=== PATIENT | female | born 1940 | race Caucasian/White ===

== ENCOUNTER 2024-06-09 12:01 | Inpatient (IN) ==
--- NOTE | 2024-06-09 12:20 | Emergency Department Note ---
Impression & Plan SOB (shortness of breath), Cirrhosis, Pleural effusion associated with hepatic disorder, Anemia, Elevated troponin ED Provider Note CHIEF COMPLAINT: Shortness of breath, wheezing, fluid buildup in lungs HISTORY OF PRESENTING ILLNESS: This 83-year-old female patient presents to the emergency department with her [id number] and granddaughter for evaluation of shortness of breath, wheezing, and trouble breathing. She also has pain in her chest and back radiating to her right arm. The patient has a history of nonalcoholic cirrhosis and has had effusions that have had to be drained by Dr. Noonan in the past. This was last done 3 months ago. The patient had a CT A/P and liver ultrasound done on 06/05/2024 at [facility] that showed a buildup of fluid, but it was stable per patient. Her shortness of breath and chest discomfort have gotten progressively worse over the past day. She states it feels similar to when she is backed up with fluid. She is on Aldactone 100 mg QAM and Lasix 40 mg QAM which seems to be a good dose for her. She tends to need paracentesis every 3 months, but has not gotten on a regular schedule yet. She is not on any blood thinners. Denies hematochezia, melena, hematuria, hemoptysis, or hematemesis. I reviewed the patient's pulmonary visit from 02/24/2024. 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 The patient had her last thoracentesis on 02/16/2024 at [facility] and she had 1.8 L removed. She has had improvement of her symptoms on Aldactone and Lasix, but still requires intermittent thoracentesis. Pulmonology discussed a Pleurx catheter placement if she did not want to undergo serial scheduled for thoracentesis with radiology. The patient's previous pleural fluid studies showed transudative effusion with negative cytology x 2. The patient had an echocardiogram in August 2023 that showed mildly increased wall thickness of the LV with normal systolic function. Normal RVSP at 28 mmHg. Mild regurgitation noted of the mitral valve. [place] [facility] manages her diuretics. The patient also follows up with [facility] hematology for her anemia. She has a history of esophageal varices and follows with GI in [place]. The patient had not seen hepatology before. The patient has not had to have a paracentesis since 2019. Cauterization of her stomach improved her abdominal ascites per patient. She had a virtual visit with [facility] Hepatology on 05/23/[address] A/P and RUQ US ordered in addition to hepatology. They do not have a follow up appt set up yet. She urology last week due to blood in her urine and she is to undergo the bladder cancer screening kit, but this has not been done yet. The patient has an appt with hematology on 06/13/24. She has a history of GAVE, but no other sources of active bleeding. Her can reforming machine operator just thinks that she is just not making enough blood. She has been as low as a Hgb of 5 before. She normally lives in the 7's and 8's. Her last blood transfusion was 02/16/24 due to Hgb of 6.9. Last iron transfusion was 12/12/23. 06/05/24 CT A/P without contrast: moderate right-sided pleural effusion with underlying collapse (stable). Mild ascites in the abdomen and pelvis (regressed). Liver cirrhosis (stable). Uncomplicated sigmoid diverticulosis (stable). Umbilical hernia containing fat and fluid (stable). 06/05/24 RUQ US: The liver is upper limits of normal showing coarse parenchymal echotexture and irregular margins with minimal perihepatic fluid. Findings are suggesting of cirrhotic liver disease. Small size right kidney. Right sided pleural effusion. The CBD is prominent measuring 1.0 cm. Findings concur with prior CT 02/16/24. 06/08/24 labs: WBC 4.1, Hgb 7.3, Hct 22.2, Plt 176. REVIEW OF SYSTEMS: See HPI for pertinent positives and pertinent negatives. ALLERGIES: Prednisone - significant facial swelling MEDICATIONS: See below PAST MEDICAL HISTORY: See below PHYSICAL EXAM: VITALS: Vitals are noted on the nurse's note and reviewed by myself. GENERAL: Non toxic, in no acute distress, non-diaphoretic. SKIN: Capillary refill <2 sec. EYES: PERRLA. EOMI. Conjunctivae without injection, sclerae without icterus. NOSE: Patent without discharge. MOUTH: Mucous membranes moist. Uvula midline. Airway patent. NECK: Supple without nuchal rigidity. HEART: Regular rate and rhythm without murmurs gallops or rubs. LUNGS: Clear to auscultation bilaterally without wheezes, rales or rhonchi. No retractions or accessory muscle use. ABDOMEN: Positive bowel sounds x 4. Normal tympanic percussion with minimal distention and no significant ascites on exam. Soft, nontender to palpation. No masses or hepatosplenomegaly. James sign negative. No CVA tenderness. No guarding, rigidity, or rebound tenderness. No focal RLQ or LLQ tenderness. MUSCULOSKELETAL: No gross musculoskeletal defects. Bilateral lower extremities are nontender to palpation. No erythema, edema, warmth, or cording. No significant edema of her bilateral lower extremities. Peripheral pulses 2+ and equal in the bilateral upper and lower extremities. RECTAL EXAM: Permission to perform the exam. Deep Tissue Massage Therapist present for exam. No external lesions noted. No external hemorrhoids. Normal sphincter tone. Internal hemorrhoids are not enlarged. No masses, tears, fistulas, fissures, abscess, or other lesion noted. Stool is brown, but Hemoccult positive. NEURO: Patient was alert and oriented. No focal neurological deficits. DIFFERENTIAL DIAGNOSIS: Differential diagnosis includes URI, bronchitis, pneumonia, pleural effusion, ascites, pneumothorax, hemothorax, PE, [place], pericarditis, myocarditis, airway obstruction, aspiration, pulmonary edema, asthma, COPD, CHF, pleurisy, metabolic acidosis, anemia, neoplasm, or others. ED COURSE AND MEDICAL DECISION MAKING: HISTORY FROM INDEPENDENT HISTORIAN: Additional history was obtained from the patient's [id number] and granddaughter. MONITOR: Continuous satellite project site monitor: Order was placed for continuous satellite project site monitor. Patient was placed on the satellite project site monitor and continuous pulse ox. Patient was noted to be in normal sinus rhythm at an initial rate of 70 bpm per my interpretation. EKG: EKG was interpreted by myself as sinus rhythm at 77 bpm with PVCs, but no acute ST or T wave changes. INTERPRETATION OF LABS: I interpreted the labs with full lab results as below in the lab section of this note. Pertinent lab results discussed in the MDM section below. INTERPRETATION OF IMAGING: Imaging studies were interpreted by myself and read by radiology as per the imaging section of this note. Chest x-ray showed cardiomegaly without evidence for pulmonary edema. There is a small right pleural effusion which is decreased in size since her prior chest CT. EXTERNAL RECORDS REVIEWED: I reviewed the patient's pulmonary office visit notes as summarized above as well as multiple laboratory and imaging study results on the patient's portal from other hospitals as summarized above. CHRONIC MEDICAL/SOCIAL CONDITIONS AFFECTING CARE: Nonalcoholic cirrhosis with recurrent pleural effusions requiring thoracentesis CONSULTATIONS: On-call hospitalist CRITICAL CARE: I have personally spent 60 minutes of critical care time in the direct management of this patient. This includes bedside care, interpretation of diagnostic studies, and testing, discussion with consultants, patient, and family members, and other required patient management activities. This 60 minutes is in excess of all separately billable procedures. MDM SUMMARY: The patient was seen during a time of extreme volume and extreme acuity. Nursing triage protocols were initiated with IV lock, labs, and/or imaging studies conducted by protocol in the triage area. The patient was initially evaluated in a triage room and then re-evaluated once they were taken back to an exam room. The patient has a history of nonalcoholic cirrhosis with recurrent pleural effusions requiring intermittent thoracentesis. The patient's last thoracentesis was in February 2024. She has been following up with Dr. Noonan of pulmonology recently with improvement of her pleural effusions after adjusting her dose of Lasix and Aldactone which is managed by cardiology. The patient has been following up with hematology due to anemia as well. Her anemia initially improved after cauterization of her GAVE, but has remained stable with a hemoglobin in the sevens and eights recently. Per patient, hematology is thinking it may be more anemia of chronic disease. Her last blood transfusion was February 2024 and last iron transfusion was in December 2023. The patient denies any symptoms of bleeding. However, she did have 1 episode of hematuria at the same time as a possible UTI. However, urology is having the patient complete a bladder cancer screening kit. The patient follows up with GI in [place] for her history of esophageal varices as well as GAVE. The patient recently had a virtual visit with hepatology with recent CT scan of the abdomen pelvis as well as right upper quadrant ultrasound performed as above with stable findings. The patient feels like her shortness of breath has gotten progressively worse over the past 2 days and feels like she may need a thoracentesis again. She denies any fevers or URI symptoms. Chest x-ray showed cardiomegaly without evidence for pulmonary edema. There is a small right pleural effusion which is decreased in size since her prior chest CT. respiratory BioFire is normal. Patient's white blood cell count is normal at 5.60. Her hemoglobin is low at 6.7 with a hematocrit of 21.8. Platelet count is normal at 169. Coags normal. Sodium slightly low at 134. BUN elevated at 27. Glucose 145. CMP otherwise without concerning abnormalities. High-sensitivity troponin elevated at 74.6 with repeat of 77.2. This may be secondary to ischemic demand from her significant anemia since her EKG is without ischemic changes. Urinalysis was normal. The patient's hemoglobin on 06/08/2024 was 7.3. Her hemoglobin is now 6.7 with an elevated BUN of 27. The patient denies any symptoms of bleeding, but her stools are Hemoccult positive. The patient is symptomatic with shortness of breath. I had a meaningful discussion about this patient with Dr. Nicholson who agrees with my assessment and the treatment plan. Purpose, benefits, and risks of blood transfusions were discussed with the patient and her family. Blood consent form was completed. The patient was given 1 unit of packed red blood cells in the ER. Due to the patient's symptomatic anemia, Hemoccult positive stools, multiple chronic health problems, and elevated troponin, we feel the patient would benefit from admission for further evaluation and treatment. I spoke with the on-call hospitalist who agreed to admit the patient for further management. Please refer to their dictation for further details. The patient's care was transferred in stable condition. DIAGNOSIS: Shortness of breath Anemia Elevated troponin Nonalcoholic cirrhosis Recurrent pleural effusions Past Med/Surg History Problem List (Updated 06/09/24 @ 21:22 by Maria Frazier PA-C) SOB (shortness of breath) (Acute) Cirrhosis (Acute) Elevated troponin (Acute) Dyspnea Anemia (Acute) Pleural effusion associated with hepatic disorder (Acute) Pleural effusion Social History (Updated 08/11/23 @ 11:36 by Genesis Mancilla RN) Smoking Status: Never smoker Second Hand Exposure: Yes; Do You Dip or Chew Tobacco: No; Hx Alcohol Use: No Hx Substance Use: No Preferred Language: American Communication Ability: Effective Clinical Reimbursement Specialist Required: No Beliefs That Will Affect Care: None marital status: / Current Living Situation: Alone current occupational status: retired How many Children do You have: 2 Other Information That Helps Us Care for You: No Feels Safe at Home: Yes Safety Concerns: Feels Safe At This Time Childhood Exposure to Second-Hand Smoke: Yes Allergies Allergies Allergy/AdvReac Type Severity Reaction Status Date / Time prednisone AdvReac Severe face Uncoded 02/22/24 14:39 swelling Home Meds Home Medications Medication Instructions Recorded Confirmed ascorbate calcium (vitamin C) 500 500 mg PO DAILY 08/10/23 06/09/24 mg tablet carvedilol 3.125 mg tablet 3.125 mg PO BID 08/10/23 06/09/24 cetirizine 10 mg tablet 10 mg PO DAILY 08/10/23 06/09/24 cholecalciferol (vitamin D3) 25 25 mcg PO DAILY 08/10/23 06/09/24 mcg (1,000 unit) capsule (Vitamin D3) ciprofloxacin HCl 250 mg tablet 250 mg PO DAILY 08/10/23 06/09/24 ferrous sulfate 325 mg (65 mg 325 mg PO BID 08/10/23 06/09/24 iron) tablet (Feosol) levothyroxine 175 mcg capsule 125 mcg PO DAILY 08/10/23 06/09/24 ondansetron 4 mg disintegrating 4 mg PO UD PRN n/v 08/10/23 06/09/24 tablet oxycodone 5 mg capsule 5 mg PO Q4H PRN Pain 08/10/23 06/09/24 quetiapine 25 mg tablet (Seroquel) 25 mg PO UD 08/10/23 06/09/24 sertraline 25 mg tablet 25 mg PO DAILY 08/10/23 06/09/24 topiramate 25 mg tablet 25 mg PO UD 08/10/23 06/09/24 trazodone 50 mg tablet 50 mg PO UD PRN Sleep 08/10/23 06/09/24 furosemide 20 mg tablet (Lasix) 40 mg PO DAILY 02/22/24 06/09/24 spironolactone 25 mg tablet 100 mg PO UD 02/22/24 06/09/24 pantoprazole 40 mg tablet,delayed 40 mg PO DAILY 06/09/24 06/09/24 release Results & Data (ED) Vital Signs Vital Signs - 24 hr 06/09/24 12:03 06/09/24 13:00 06/09/24 13:01 Temperature 36.4 C L Temperature Source Temporal Artery Scan Pulse Rate 64 66 68 Pulse Rate from SpO2 Sensor Respiratory Rate 22 Blood Pressure 127/68 Blood Pressure Mean 87 Pulse Oximetry 91 98 Oxygen Delivery Method Room Air Room Air Sepsis Recent Fever Within 48 Hours No Sepsis New/Unexplained Change in Mental Status N/A Sepsis Action Taken by Nursing No Action Required 06/09/24 13:17 06/09/24 13:26 06/09/24 13:38 Temperature Temperature Source Pulse Rate 67 78 70 Pulse Rate from SpO2 Sensor 67 77 67 Respiratory Rate 15 18 18 Blood Pressure 107/59 L 115/63 115/63 Blood Pressure Mean 75 80 80 Pulse Oximetry 99 100 100 Oxygen Delivery Method Sepsis Recent Fever Within 48 Hours Sepsis New/Unexplained Change in Mental Status Sepsis Action Taken by Nursing 06/09/24 14:00 06/09/24 14:35 06/09/24 14:41 Temperature Temperature Source Pulse Rate 74 73 Pulse Rate from SpO2 Sensor 75 73 Respiratory Rate 29 H Blood Pressure 115/61 111/50 L Blood Pressure Mean 78 70 Pulse Oximetry 97 98 Oxygen Delivery Method Sepsis Recent Fever Within 48 Hours Sepsis New/Unexplained Change in Mental Status Sepsis Action Taken by Nursing Laboratory Data 06/09/24 14:46 06/09/24 12:15 Lab Results 06/09/24 06/09/24 06/09/24 Range/Units 12:15 13:06 13:10 WBC 5.60 (4.8-10.8) K/ul RBC 2.17 L (4.20-5.40) M/uL Hgb 6.7 L* (12.0-16.0) g/dl Hct 21.8 L (37.0-47.0) % MCV 100.5 H (80.0-100.0) fL MCH 30.9 (25.0-34.0) pg MCHC 30.7 L (32.0-36.0) g/dL RDW Std Deviation 53.4 H (36.4-46.3) fL RDW Coeff of Kiara 14.6 H (11.5-14.5) % Plt Count 169 (130-400) K/uL MPV 9.6 (9.4-12.4) fL Immature Gran % (Auto) 0.4 % Neut % (Auto) 63.6 % Lymph % (Auto) 18.0 % [place] % (Auto) 10.9 % Eos % (Auto) 6.4 % Baso % (Auto) 0.7 % Neut # (Auto) 3.56 (1.40-6.50) K/uL Lymph # (Auto) 1.01 L (1.20-3.40) K/uL [place] # (Auto) 0.61 H (0.11-0.59) K/uL Eos # (Auto) 0.36 (0.00-0.50) K/uL Baso # (Auto) 0.04 (0.00-0.20) K/uL Immature Gran # (Auto) 0.02 (0.01-0.20) K/uL Polychromasia 1+ Tear Drop Cells 2+ Ovalocytes 1+ PT 11.8 (9.0-12.0) Seconds INR 1.1 (0.9-1.1) APTT 25 (21-31) Seconds PTT Ratio 0.9 Sodium 134 L (136-145) mmol/L Potassium 4.1 (3.5-5.1) mmol/L Chloride 104 (98-107) mmol/L Carbon Dioxide 23 (21-32) mmol/L Anion Gap 7 (3-11) BUN 27 H (6-23) mg/dl Creatinine 1.14 (0.6-1.2) mg/dl Est Cr Clr Drug Dosing 25.1 ml/min eGFR 47.47 BUN/Creatinine Ratio 23.7 H (10-20) Glucose 145 H (70-99(Fasting)) mg/dl Calcium 8.9 (8.6-10.3) mg/dl Total Bilirubin 0.6 (0.2-1.0) mg/dl AST 25 (13-39) U/L ALT 14 (7-52) U/L Alkaline Phosphatase 64 (34-104) U/L Troponin I High Sens 74.6 H* (0-14) pg/ml Total Protein 5.8 L (6.0-8.3) gm/dl Albumin 3.0 L (3.4-5.0) gm/dl Globulin 2.8 (2.5-4.0) gm/dl Albumin/Globulin Ratio 1.1 (0.9-2) Urine Color Urine Appearance (Clear) Urine pH (4.5-7.5) Ur Specific [place] (1.000-1.030) Urine Protein (Negative) Urine Glucose (UA) (Negative) Urine Ketones (Negative) Urine Blood (Negative) Urine Nitrite (Negative) Urine Bilirubin (Negative) Urine Urobilinogen (Negative) Ur Leukocyte Esterase (Negative) Adenovirus (PCR) (NotDetected) B. pertussis DNA (PCR) (NotDetected) B.parapertussis DNA PCR (NotDetected) C. pneumoniae DNA (PCR) (NotDetected) Coronavirus OC43 (PCR) (NotDetected) Coronavirus HKU1 (PCR) (NotDetected) Coronavirus 229E (PCR) (NotDetected) SARS-CoV-2 (PCR) (NotDetected) Coronavirus NL63 (PCR) (NotDetected) Human Metapneumovir PCR (NotDetected) Influenza Type A (PCR) (NotDetected) Influenza Type B (PCR) (NotDetected) M. pneumoniae (PCR) (NotDetected) Parainfluenza 1 (PCR) (NotDetected) Parainfluenza 2 (PCR) (NotDetected) Parainfluenza 3 (PCR) (NotDetected) Parainfluenza 4 (PCR) (NotDetected) RSV (PCR) (NotDetected) Entero/Rhino (PCR) (NotDetected) Blood Type AB Positive Blood Type Recheck AB Positive Antibody Screen NEGATIVE Crossmatch See Detail 06/09/24 06/09/24 Range/Units 14:00 14:30 WBC (4.8-10.8) K/ul RBC (4.20-5.40) M/uL Hgb (12.0-16.0) g/dl Hct (37.0-47.0) % MCV (80.0-100.0) fL MCH (25.0-34.0) pg MCHC (32.0-36.0) g/dL RDW Std Deviation (36.4-46.3) fL RDW Coeff of Kiara (11.5-14.5) % Plt Count (130-400) K/uL MPV (9.4-12.4) fL Immature Gran % (Auto) % Neut % (Auto) % Lymph % (Auto) % [place] % (Auto) % Eos % (Auto) % Baso % (Auto) % Neut # (Auto) (1.40-6.50) K/uL Lymph # (Auto) (1.20-3.40) K/uL [place] # (Auto) (0.11-0.59) K/uL Eos # (Auto) (0.00-0.50) K/uL Baso # (Auto) (0.00-0.20) K/uL Immature Gran # (Auto) (0.01-0.20) K/uL Polychromasia Tear Drop Cells Ovalocytes PT (9.0-12.0) Seconds INR (0.9-1.1) APTT (21-31) Seconds PTT Ratio Sodium (136-145) mmol/L Potassium (3.5-5.1) mmol/L Chloride (98-107) mmol/L Carbon Dioxide (21-32) mmol/L Anion Gap (3-11) BUN (6-23) mg/dl Creatinine (0.6-1.2) mg/dl Est Cr Clr Drug Dosing ml/min eGFR BUN/Creatinine Ratio (10-20) Glucose (70-99(Fasting)) mg/dl Calcium (8.6-10.3) mg/dl Total Bilirubin (0.2-1.0) mg/dl AST (13-39) U/L ALT (7-52) U/L Alkaline Phosphatase (34-104) U/L Troponin I High Sens (0-14) pg/ml Total Protein (6.0-8.3) gm/dl Albumin (3.4-5.0) gm/dl Globulin (2.5-4.0) gm/dl Albumin/Globulin Ratio (0.9-2) Urine Color Yellow Urine Appearance Clear (Clear) Urine pH 5.5 (4.5-7.5) Ur Specific [place] 1.007 (1.000-1.030) Urine Protein Negative (Negative) Urine Glucose (UA) Negative (Negative) Urine Ketones Negative (Negative) Urine Blood Negative (Negative) Urine Nitrite Negative (Negative) Urine Bilirubin Negative (Negative) Urine Urobilinogen Negative (Negative) Ur Leukocyte Esterase Negative (Negative) Adenovirus (PCR) Not Detected (NotDetected) B. pertussis DNA (PCR) Not Detected (NotDetected) B.parapertussis DNA PCR Not Detected (NotDetected) C. pneumoniae DNA (PCR) Not Detected (NotDetected) Coronavirus OC43 (PCR) Not Detected (NotDetected) Coronavirus HKU1 (PCR) Not Detected (NotDetected) Coronavirus 229E (PCR) Not Detected (NotDetected) SARS-CoV-2 (PCR) Not Detected (NotDetected) Coronavirus NL63 (PCR) Not Detected (NotDetected) Human Metapneumovir PCR Not Detected (NotDetected) Influenza Type A (PCR) Not Detected (NotDetected) Influenza Type B (PCR) Not Detected (NotDetected) M. pneumoniae (PCR) Not Detected (NotDetected) Parainfluenza 1 (PCR) Not Detected (NotDetected) Parainfluenza 2 (PCR) Not Detected (NotDetected) Parainfluenza 3 (PCR) Not Detected (NotDetected) Parainfluenza 4 (PCR) Not Detected (NotDetected) RSV (PCR) Not Detected (NotDetected) Entero/Rhino (PCR) Not Detected (NotDetected) Blood Type Blood Type Recheck Antibody Screen Crossmatch Administered Medications Carvedilol (Carvedilol 3.125 Mg Tab) 3.125 mg PO BID [facility] Stop: 07/09/24 20:59 Last Admin: 06/09/24 20:24 Dose: 3.125 mg Documented By: DIAMOND Ferrous Sulfate (Ferrous Sulfate 325 Mg Tab) 325 mg PO BID ESTHER Stop: 07/09/24 20:59 Last Admin: 06/09/24 20:24 Dose: 325 mg Documented By: DN Pantoprazole Sodium (Protonix) 40 mg in 10 mls @ 5 mls/min IV BID ESTHER Stop: 07/09/24 14:44 Last Admin: 06/09/24 15:42 Dose: 5 mls/min Documented By: DONG Imaging Data Radiologist's Impression: Chest X-Ray 06/09/24 12:11 XR chest 1V not portable CLINICAL HISTORY: Chest pain, nonspecific COMPARISON STUDY: Chest CT February 17, 2024. Chest radiograph November 29, 2023. FINDINGS: There is no pneumothorax. A small right pleural effusion has decreased in size since chest CT of February 17, 2024. Cardiomegaly is again noted. Electronic device projects over the chest. There is no evidence for pulmonary edema. There is no consolidation to suggest pneumonia. IMPRESSION: 1. Cardiomegaly without evidence for pulmonary edema. 2. Small right pleural effusion, decreased in size since prior chest CT. ACT 112: Negative or not required by law. Electronically signed by: Dwayne Felton M.D. 06/09/2024 1:17 PM Discharge Plan Visit Data Chief Complaint: Shortness of Breath/Dyspnea Stated Complaint: FLUID BUILD UP IN LUNGS, SOB/WEEZING ED Provider: Naif Nicholson ED Midlevel Provider: Maria Frazier Discharge Problem: SOB (shortness of breath), Cirrhosis, Pleural effusion associated with hepatic disorder, Anemia, Elevated troponin Patient Disposition: Admitted As Inpatient Condition: Good Discharge Instructions Interventions: ED Discharge Assessment Last Done: 06/09/24 15:21 Discharge Problem: Cirrhosis Qualifiers: Hepatic cirrhosis type: other cirrhosis Qualified Code(s): K74.69 - Other cirrhosis of liver Anemia Qualifiers: Anemia type: unspecified type Qualified Code(s): D64.9 - Anemia, unspecified
[2024-06-09 12:43] LABS: Hematocrit (blood only) 21.8 % (37.0-47.0); Hemoglobin 6.7 g/dl (12.0-16.0); Mean Corpuscular Hemoglobin 30.9 pg (25.0-34.0); Mean Corpuscular Hgb Conc 30.7 g/dL (32.0-36.0); Mean Corpuscular Volume 100.5 fL (80.0-100.0); Mean Platelet Volume 9.6 fL (9.4-12.4); Platelet Count 169 K/uL (130-400); RDW Coefficient of Variation 14.6 % (11.5-14.5); RDW Standard Deviation 53.4 fL (36.4-46.3); Red Blood Count 2.17 M/uL (4.20-5.40)
[2024-06-09 12:44] LABS: Basophils # (auto) 0.04 K/uL (0.00-0.20); Basophils % (auto) 0.7 %; Eosinophils # (auto) 0.36 K/uL (0.00-0.50); Eosinophils % (auto) 6.4 %; Immature Granulocytes # (auto) 0.02 K/uL (0.01-0.20); Immature Granulocytes % (auto) 0.4 %; Lymphocytes # (auto) 1.01 K/uL (1.20-3.40); Monocytes # (auto) 0.61 K/uL (0.11-0.59); Monocytes % (auto) 10.9 %; Neutrophils # (auto) 3.56 K/uL (1.40-6.50); Neutrophils % (auto) 63.6 %; Ovalocytes 1+; Polychromasia 1+; Tear Drop Cells 2+
[2024-06-09 12:51] LABS: Albumin Globulin Ratio 1.1 (0.9-2); BUN Creatinine Ratio 23.7 (10-20); Bilirubin,Total 0.6 mg/dl (0.2-1.0); Calcium 8.9 mg/dl (8.6-10.3); Creatinine Clr Calc Pharmacy 25.1 ml/min; Globulin 2.8 gm/dl (2.5-4.0); Potassium 4.1 mmol/L (3.5-5.1); Total Protein 5.8 gm/dl (6.0-8.3)
[2024-06-09] MEDS ORDERED: SODIUM CHLORIDE 0.9% 100 ML IV PRN (12:51)
[2024-06-09] MEDS ORDERED: SODIUM CHLORIDE 0.9% 50 ML IV PRN (12:51)
[2024-06-09 12:59] LABS: INR 1.1 (0.9-1.1); Partial Thromboplastin Ratio 0.9; Partial Thromboplastin Time 25 Seconds (21-31); Prothrombin Time 11.8 Seconds (9.0-12.0)
[2024-06-09 13:02] LABS: Troponin I High Sensitivity 74.6 pg/ml (0-14)
--- NOTE | 2024-06-09 13:18 | XRay Report ---
XR chest 1V not portable CLINICAL HISTORY: Chest pain, nonspecific COMPARISON STUDY: Chest CT February 17, 2024. Chest radiograph November 29, 2023. FINDINGS: There is no pneumothorax. A small right pleural effusion has decreased in size since chest CT of February 17, 2024. Cardiomegaly is again noted. Electronic device projects over the chest. The re is no evidence for pulmonary edema. There is no consolidation to suggest pneumonia. IMPRESSION: 1. Cardiomegaly without evidence for pulmonary edema. 2. Small right pleural effusion, decreased in size since prior chest CT. ACT 112: Negative or not required by law. Electronically signed by: Dawyne Felton M.D. 06/09/2024 1:17 PM
--- NOTE | 2024-06-09 13:59 | History & Physical Report ---
Date of Service June 09, 2024 Assessment & Plan (1) Anemia: Plan: chronic; hx of esophageal varices and GAVE possible upper GI bleed - Hgb 6.7, Hct 21.8 on admission - pt reports 7.3 on labs 06/08 - BUN 27 - blood consents obtained by ER staff - trend H&H Q6 hours overnight - additional unit of blood if hgb < 7 - 1 unit of blood to be given - heme occult positive; will consult GI - possible EGD - clear diet - start PPI IV BID - continue iron supplement BID; defer repeat iron panel given rn long term care supplementation (2) Dyspnea: Plan: possibly 2/2 to anemia and chronic pleural effusions new dry cough x 4 days does not use oxygen at baseline CXR showing cardiomegaly without pulmonary edema, small right pleural effusion decreased since prior chest CT in February echo 02/17/24 showing EF 65%, Mild mitral regurg - viral cause on differential; biofire ordered - non-hypoxic (3) Elevated troponin: Plan: 74.6 trend trop EKG showing NSR, denies ischemic changes denies cp monitor on tele (4) Cirrhosis: Plan: history of cirrhosis with chronic pleural effusions needing thoracentesis approximately every 3 months CXR showing improved right pleural effusion Continue Lasix 40 daily and spironolactone 100 Mg daily Plan Patient is an 83-year-old female with a past medical history of cirrhosis with chronic pleural effusions needing thoracentesis approximately every 3 months; last drained in February, chronic anemia, history of esophageal varices and GAVE, hypertension, hypothyroidism, A-fib, dementia. She presents due to dyspnea x 4 days and was found to be anemic with a hemoglobin of 6.7. GI to evaluate for possible EGD. Chronic stable diagnoses: hypothyroidism continue levothyroxine A-fib s/p ablation, continue carvedilol dementia/anxiety/depression - continue quetiapine 25 Mg daily, sertraline, and trazodone headaches - continue topiramate VTE ppx: SCDs; defer chemical ppx given possible GI bleed Diet: Clears Dispo: med/tele with elevated trop Admission and Anticipated Discharge Date Admission Date: 06/09/24 History of Present Illness Chief Complaint: dyspnea Primary Care Provider: Keira Nava Patient is an 83-year-old female with a past medical history of cirrhosis with chronic pleural effusions needing thoracentesis approximately every 3 months; last drained in February, chronic anemia, history of esophageal varices and GAVE, hypertension, hypothyroidism, A-fib s/p ablation, dementia. She presents today due to dyspnea and was found to be anemic with a hemoglobin of 6.7. Patient follows with numerous different medical facilities, had blood work 06/08 that showed a hemoglobin of 7.3. Patient seen at bedside with her daughter and granddaughter who provided most of history. Patient stated she has had an increase in dyspnea over the past 3 to 4 days along with a dry cough. She typically has dyspnea on exertion at baseline. She thought she needed her lungs drained again and that is why she came in. patient denies hematemesis, blood in stool, has chronic melena with iron supplementation. Patient denies rhinorrhea, sore throat, chest pain, abdominal pain, nausea, vomiting, diarrhea, constipation, dysuria, hematuria, edema. She was being evaluated by urology for hematuria and resolved with antibiotic treatment; is to have an at home urine sample to assess for bladder cancer. She follows with [facility] hematology and has a follow-up arranged with them for next Tuesday, she had a hemoglobin of 7.3 with them yesterday. She needed 2 units of blood August 16, 2 units of blood in September, 1 unit November 29, 1 unit 02/15. She had a colonoscopy in 2019 that was normal. She had a cauterization of her stomach 06/22/2019 in [place] and was supposed to have a follow-up cauterization but it was canceled due to COVID. She did have a [facility] done [facility] that did show some "sluggishness" but was not cauterized for bleed at that time. 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 She has had blood work multiple times this week and could contribute to some mild anemia. The supervisor [employer] boat assembly recommended possible bone marrow biopsy but patient is unsure if she wants it given her age. She follows with [facility] for [facility]ology, she has A-fib s/p ablation in 2019. She took all of her home medications this morning. She stated her spironolactone was decreased to 25 Mg previously resulted in severe increase in her pleural effusions; this has been increased back to 100 Mg daily. She takes topiramate for headaches. She does not use oxygen at baseline. She wishes to be DNR/DNI. Allergies Allergy/AdvReac Type Severity Reaction Status Date / Time prednisone AdvReac Severe face Uncoded 02/22/24 14:39 swelling Home Medications Medication Instructions Recorded Confirmed Type ascorbate calcium (vitamin C) 500 500 mg PO DAILY 08/10/23 02/22/24 History mg tablet carvedilol 3.125 mg tablet 3.125 mg PO BID 08/10/23 02/22/24 History cetirizine 10 mg tablet 10 mg PO DAILY 08/10/23 02/22/24 History cholecalciferol (vitamin D3) 25 25 mcg PO DAILY 08/10/23 02/22/24 History mcg (1,000 unit) capsule (Vitamin D3) ciprofloxacin HCl 250 mg tablet 250 mg PO DAILY 08/10/23 02/22/24 History ferrous sulfate 325 mg (65 mg 325 mg PO BID 08/10/23 02/22/24 History iron) tablet (Feosol) levothyroxine 175 mcg capsule 175 mcg PO DAILY 08/10/23 02/22/24 History ondansetron 4 mg disintegrating 4 mg PO Q8H PRN 08/10/23 02/22/24 History tablet oxycodone 5 mg capsule 5 mg PO Q4H PRN 08/10/23 02/22/24 History quetiapine 25 mg tablet (Seroquel) 25 mg PO DAILY 08/10/23 02/22/24 History sertraline 25 mg tablet 25 mg PO DAILY 08/10/23 02/22/24 History topiramate 25 mg tablet 25 mg PO BID 08/10/23 02/22/24 History trazodone 50 mg tablet 50 mg PO DAILY PRN 08/10/23 02/22/24 History furosemide 20 mg tablet (Lasix) 40 mg PO DAILY 02/22/24 02/22/24 History spironolactone 25 mg tablet 100 mg PO DAILY 02/22/24 02/22/24 History Past Med/Surg History Problem List (Updated 06/09/24 @ 14:01 by Megha Hoffman PA-C) Cirrhosis Elevated troponin Dyspnea Anemia Pleural effusion associated with hepatic disorder Pleural effusion Social History (Updated 08/11/23 @ 11:36 by Genesis Mancilla RN) Smoking Status: Never smoker Second Hand Exposure: Yes; Do You Dip or Chew Tobacco: No; Hx Alcohol Use: No Hx Substance Use: No Preferred Language: Citizen Of [place] Communication Ability: Effective [employer] Required: No Beliefs That Will Affect Care: None marital status: / Current Living Situation: Alone current occupational status: retired How many Children do You have: 2 Feels Safe at Home: Yes Childhood Exposure to Second-Hand Smoke: Yes Review of Systems Review of Systems: see HPI Physical Exam Physical Exam: The patient is awake, alert and oriented 3, well developed and well nourished, normocephalic and atraumatic, in no acute distress. Non-toxic appearing. HEENT- EOMI, mucous membranes moist. Hearing grossly intact. Heart-normal S1 and S2. No murmurs, rubs or gallops. Lungs-clear bilaterally, no respiratory distress, no accessory muscle use. Abdomen-normal bowel sounds and soft. No ascites noted. Non-tender. Extremities- no clubbing, cyanosis, or edema. Rheumatologic-normal range of motion. Psychiatric-normal affect. Results & Data Results & Data Vital Signs (Past 12 Hours) Vital Signs Temp Pulse Resp BP Pulse Ox O2 Del Method 06/09/24 13:38 70 18 115/63 100 06/09/24 13:26 78 18 115/63 100 06/09/24 13:17 67 15 107/59 L 99 06/09/24 13:01 68 98 Room Air 06/09/24 13:00 66 06/09/24 12:03 36.4 C L 64 22 127/68 91 Room Air Laboratory Results Reviewed CBC, CMP, troponin Diagnostic Findings reviewed CXR ECG Additional Comments: NSR; no ischemic changes Code Status & VTE Plan Code Status dnr/dni VTE Prophylaxis Plan VTE Prophylaxis will be ordered: Yes Supervising Physician Co-Signing Physician Notes I have personally seen, evaluated and examined the patient. I have also personally discussed the management of the patient with the resident physician/KIM and I agree with the exam findings documented in the history and physical examination and the documented assessment and plan unless otherwise stated below. Brief Exam: In general pleasant 83-year-old female is alert and oriented x 3 at the time of my exam she is in no acute distress. She is accompanied by her daughter and granddaughter at the time of my exam whom she grants permission to be in the room during my interview and exam. The patient has no specific complaints except for breathlessness which is better with the oxygen. I personally spoke with Dr. Stovall on-call for routine consultation. Discussed the case with him. We are going to transfuse 1 unit of packed red blood cells Doose every 6 hours H&H's and keep the patient on clear liquids with IV Protonix. HEENT: Normocephalic atraumatic. Heart: Regular rate and rhythm I do not appreciate murmur or ectopy or rub. Lungs: Clear bilaterally. Abdomen: Flat soft nontender positive bowel sounds no appreciable organomegaly appreciated. Extremities: Intact with no edema. Neurologically: Alert and oriented x 3 with no focal deficit. Assessment/plan: As discussed above. Will trend the H&H's. 1 unit of packed red cells for now. Protonix twice daily IV. Await further input from GI given the patient's history would anticipate a possible endoscopy at the first of the week if the patient remains stable. Please refer to orders for further planning. PG Care Time/CCT Total # of Minutes Spent Total Time Spent with Patient: Total time spent is greater than 50% in coordination of care (as documented) at patient's floor/unit and/or counseling patient: Coding Level of Care Code 87042 INT INP/OBS CARE MIN Diagnoses Anemia D64.9 Dyspnea R06.00 Elevated troponin R79.89 Cirrhosis of liver without ascites, unspecified hepatic cirrhosis type K74.60 Ascites presence: without ascites Hepatic cirrhosis type: unspecified hepatic cirrhosis (4) Cirrhosis Ascites presence: without ascites Hepatic cirrhosis type: unspecified hepatic cirrhosis Qualified Code(s): K74.60 - Unspecified cirrhosis of liver
[2024-06-09 14:43] LABS: Appearance Urine Clear (Clear); Bilirubin Urine Negative (Negative); Blood Urine Negative (Negative); Color Urine Yellow; Glucose Urine UA Negative (Negative); Ketones Urine Negative (Negative); Leukocyte Esterase Urine Negative (Negative); Nitrite Urine Negative (Negative); Protein Urine Negative (Negative); Specific Gravity Urine 1.007 (1.000-1.030); Urobilinogen Urine Negative (Negative); pH Urine 5.5 (4.5-7.5)
[2024-06-09 15:01] LABS: Adenovirus PCR Not Detected (NotDetected); Bordetella parapertussis PCR Not Detected (NotDetected); Bordetella pertussis PCR Not Detected (NotDetected); Chlamydia pneumoniae PCR Not Detected (NotDetected); Coronavirus 229E PCR Not Detected (NotDetected); Coronavirus CoV-2 (COVID19)PCR Not Detected (NotDetected); Coronavirus HKU1 PCR Not Detected (NotDetected); Coronavirus NL63 PCR Not Detected (NotDetected); Coronavirus OC43PCR Not Detected (NotDetected); Human Metapneumovirus PCR Not Detected (NotDetected); Influenza A PCR Not Detected (NotDetected); Influenza B PCR Not Detected (NotDetected); Mycoplasma pneumoniae PCR Not Detected (NotDetected); Parainfluenza Virus 1 PCR Not Detected (NotDetected); Parainfluenza Virus 2 PCR Not Detected (NotDetected); Parainfluenza Virus 3 PCR Not Detected (NotDetected); Parainfluenza Virus 4 PCR Not Detected (NotDetected); Respiratory Syncytial VirusPCR Not Detected (NotDetected); Rhinovirus/Enterovirus PCR Not Detected (NotDetected)
[2024-06-09] MEDS ORDERED: ACETAMINOPHEN 325 MG TAB PO PRN (15:20)
[2024-06-09] MEDS ORDERED: ONDANSETRON INJ 2 MG/ML 2 ML VIAL IV PRN (15:20)
[2024-06-09] MEDS: PANTOprazole 40 MG/10 ML SYR IV SCH (15:42)
[2024-06-09 15:48] LABS: Hematocrit (blood only) 20.5 % (37.0-47.0); Hemoglobin 6.4 g/dl (12.0-16.0)
[2024-06-09] MEDS ORDERED: traZODone HCL 50 MG TAB PO PRN (16:37)
[2024-06-09] MEDS ORDERED: oxyCODONE HCL IR 5 MG TAB (IMMEDIATE RELEASE) PO PRN (16:53)
--- NOTE | 2024-06-09 17:02 | Emergency Department Note ---
ED Visit Note I was consulted by the Advanced Practice Provider. I personally made or approved the management plan for the patient. I performed a substantive portion of the visit. This includes the aspects of: MDM. .
[2024-06-09] MEDS: FERROUS SULFATE 325 MG TAB PO SCH (20:24)
[2024-06-09] MEDS: carvediloL 3.125 MG TAB PO SCH (20:24)
[2024-06-09 21:25] LABS: Hematocrit (blood only) 28.2 % (37.0-47.0); Hemoglobin 9.1 g/dl (12.0-16.0)
[2024-06-09 22:57] LABS: Hematocrit (blood only) 28.1 % (37.0-47.0); Hemoglobin 9.2 g/dl (12.0-16.0)
[2024-06-10 02:16] LABS: Basophils # (auto) 0.02 K/uL (0.00-0.20); Basophils % (auto) 0.4 %; Eosinophils # (auto) 0.42 K/uL (0.00-0.50); Hematocrit (blood only) 27.3 % (37.0-47.0); Hemoglobin 8.8 g/dl (12.0-16.0); Immature Granulocytes # (auto) 0.01 K/uL (0.01-0.20); Immature Granulocytes % (auto) 0.2 %; Lymphocytes # (auto) 0.93 K/uL (1.20-3.40); Mean Corpuscular Hemoglobin 30.2 pg (25.0-34.0); Mean Corpuscular Hgb Conc 32.2 g/dL (32.0-36.0); Mean Corpuscular Volume 93.8 fL (80.0-100.0); Mean Platelet Volume 9.9 fL (9.4-12.4); Monocytes # (auto) 0.53 K/uL (0.11-0.59); Monocytes % (auto) 11.4 %; Neutrophils # (auto) 2.75 K/uL (1.40-6.50); Platelet Count 112 K/uL (130-400); RDW Coefficient of Variation 17.3 % (11.5-14.5); RDW Standard Deviation 60.1 fL (36.4-46.3); Red Blood Count 2.91 M/uL (4.20-5.40); White Blood Count 4.66 K/ul (4.8-10.8)
[2024-06-10 02:29] LABS: BUN Creatinine Ratio 22.9 (10-20); Creatinine Clr Calc Pharmacy 27.2 ml/min; Potassium 3.5 mmol/L (3.5-5.1)
[2024-06-10] MEDS: LEVOTHYROXINE SODIUM 125 MCG TABLET PO SCH (06:04)
[2024-06-10 08:01] LABS: Hematocrit (blood only) 28.6 % (37.0-47.0); Hemoglobin 9.3 g/dl (12.0-16.0); Mean Corpuscular Hemoglobin 30.5 pg (25.0-34.0); Mean Corpuscular Hgb Conc 32.5 g/dL (32.0-36.0); Mean Corpuscular Volume 93.8 fL (80.0-100.0); Mean Platelet Volume 9.6 fL (9.4-12.4); Platelet Count 110 K/uL (130-400); RDW Coefficient of Variation 18.1 % (11.5-14.5); RDW Standard Deviation 62.5 fL (36.4-46.3); Red Blood Count 3.05 M/uL (4.20-5.40); White Blood Count 4.21 K/ul (4.8-10.8)
[2024-06-10] MEDS: TOPIRAMATE 25 MG TAB PO SCH (08:25)
[2024-06-10] MEDS: CETIRIZINE HCL 10 MG TABLET PO SCH (08:26)
[2024-06-10] MEDS: SERTRALINE HCL 50 MG TABLET PO SCH (08:26)
[2024-06-10] MEDS: QUEtiapine FUMARATE 25 MG TABLET PO SCH (08:26)
[2024-06-10 08:36] LABS: Ferritin 56.2 ng/ml (8-388)
[2024-06-10 08:41] LABS: Folate (Folic Acid),Ser orPlas > 22.30 ng/ml (>5.38)
[2024-06-10 08:42] LABS: Vitamin B12 401 pg/ml (180-914)
[2024-06-10] MEDS ORDERED: SPIRONOLACTONE 100 MG TAB PO SCH (09:00)
--- NOTE | 2024-06-10 10:06 | Gastrointestinal Consultation ---
Date of Consultation June 10, 2024 Assessment & Plan (1) Anemia: She has anemia which is to be expected with liver disease. Being heme (+) does not indicate GI bleeding. She has no visible evidence of bleeding without hematochezia or melena. I don't feel we need to intervene with endoscopy now. I would treat her other problems now and will follow her blood count. I am sure she gets regular procedures as an outpatient with history of varices and GAVE but I don't have access to those records. Will follow. History of Present Illness Reason for Consultation: cirrhosis Attending Physician: Cesar Henley MD History of Present Illness 83 year old female admitted with dyspnea. 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 On admission her hemoglobin was 6.4 and she was heme (+). Patient states she has not had blood in her stool. She has no bright red blood. She does not see black stools. She is not clear on who manages her liver disease but she does see a GI in [place] and also has been at [facility]. She has had no episodes of confusion. She denies abdominal issues or pain. Allergies Allergy/AdvReac Type Severity Reaction Status Date / Time prednisone AdvReac Severe face Uncoded 02/22/24 14:39 swelling Home Medications Medication Instructions Recorded Confirmed Type ascorbate calcium (vitamin C) 500 500 mg PO DAILY 08/10/23 06/09/24 History mg tablet carvedilol 3.125 mg tablet 3.125 mg PO BID 08/10/23 06/09/24 History cetirizine 10 mg tablet 10 mg PO DAILY 08/10/23 06/09/24 History cholecalciferol (vitamin D3) 25 25 mcg PO DAILY 08/10/23 06/09/24 History mcg (1,000 unit) capsule (Vitamin D3) ciprofloxacin HCl 250 mg tablet 250 mg PO DAILY 08/10/23 06/09/24 History ferrous sulfate 325 mg (65 mg 325 mg PO BID 08/10/23 06/09/24 History iron) tablet (Feosol) levothyroxine 175 mcg capsule 125 mcg PO DAILY 08/10/23 06/09/24 History ondansetron 4 mg disintegrating 4 mg PO UD PRN n/v 08/10/23 06/09/24 History tablet oxycodone 5 mg capsule 5 mg PO Q4H PRN Pain 08/10/23 06/09/24 History quetiapine 25 mg tablet (Seroquel) 25 mg PO UD 08/10/23 06/09/24 History sertraline 25 mg tablet 25 mg PO DAILY 08/10/23 06/09/24 History topiramate 25 mg tablet 25 mg PO UD 08/10/23 06/09/24 History trazodone 50 mg tablet 50 mg PO UD PRN Sleep 08/10/23 06/09/24 History furosemide 20 mg tablet (Lasix) 40 mg PO DAILY 02/22/24 06/09/24 History spironolactone 25 mg tablet 100 mg PO UD 02/22/24 06/09/24 History pantoprazole 40 mg tablet,delayed 40 mg PO DAILY 06/09/24 06/09/24 History release Patient History Social History Smoking Status: Never smoker Second Hand Exposure: Yes; Do You Dip or Chew Tobacco: No; Hx Alcohol Use: No Hx Substance Use: No Preferred Language: Montenegrin Communication Ability: Effective Continuity Reader Required: No Beliefs That Will Affect Care: None marital status: / Current Living Situation: Alone current occupational status: retired How many Children do You have: 2 Other Information That Helps Us Care for You: No Feels Safe at Home: Yes Safety Concerns: Feels Safe At This Time Childhood Exposure to Second-Hand Smoke: Yes Review of Systems Review of Systems: All systems reviewed & are unremarkable except as noted in HPI & below Physical Exam Constitutional: WD/WN, vitals as above Neck: trachea midline, no thyromegaly Respiratory: normal respiratory effort, lungs clear to auscultation Cardiovascular: RRR, no murmur, no edema Gastrointestinal (Abdomen): normal bowel sounds, soft, nontender, no hepatosplenomegaly Results & Data Vital Signs (Past 12 Hours) Vital Signs Temp Pulse Pulse Resp BP Pulse Ox O2 Del Method 06/10/24 07:59 36.3 C L 104 H 18 120/75 96 Room Air 06/10/24 03:12 108/62 06/10/24 02:58 36.6 C 104 H 16 94/60 L 96 Room Air 06/10/24 00:38 74 06/09/24 23:14 36.6 C 105 H 18 100/63 96 Room Air Laboratory Results 06/10/24 06/10/24 06/09/24 Range/Units 07:46 02:01 22:40 WBC 4.21 L 4.66 L (4.8-10.8) K/ul RBC 3.05 L 2.91 L (4.20-5.40) M/uL Hgb 9.3 L 8.8 L 9.2 L (12.0-16.0) g/dl Hct 28.6 L 27.3 L 28.1 L (37.0-47.0) % MCV 93.8 93.8 D (80.0-100.0) fL MCH 30.5 30.2 (25.0-34.0) pg MCHC 32.5 32.2 (32.0-36.0) g/dL RDW Std Deviation 62.5 H 60.1 H (36.4-46.3) fL RDW Coeff of Kiara 18.1 H 17.3 H (11.5-14.5) % Plt Count 110 L 112 L (130-400) K/uL MPV 9.6 9.9 (9.4-12.4) fL Immature Gran % (Auto) 0.2 % Neut % (Auto) 59.0 % Lymph % (Auto) 20.0 % Barbour % (Auto) 11.4 % Eos % (Auto) 9.0 % Baso % (Auto) 0.4 % Neut # (Auto) 2.75 (1.40-6.50) K/uL Lymph # (Auto) 0.93 L (1.20-3.40) K/uL Barbour # (Auto) 0.53 (0.11-0.59) K/uL Eos # (Auto) 0.42 (0.00-0.50) K/uL Baso # (Auto) 0.02 (0.00-0.20) K/uL Immature Gran # (Auto) 0.01 (0.01-0.20) K/uL Polychromasia Tear Drop Cells Ovalocytes PT (9.0-12.0) Seconds INR (0.9-1.1) APTT (21-31) Seconds PTT Ratio Sodium 134 L (136-145) mmol/L Potassium 3.5 (3.5-5.1) mmol/L Chloride 106 (98-107) mmol/L Carbon Dioxide 22 (21-32) mmol/L Anion Gap 6 (3-11) BUN 24 H (6-23) mg/dl Creatinine 1.05 (0.6-1.2) mg/dl Est Cr Clr Drug Dosing 27.2 ml/min eGFR 52.39 BUN/Creatinine Ratio 22.9 H (10-20) Glucose 90 (70-99(Fasting)) mg/dl Calcium 8.0 L (8.6-10.3) mg/dl Iron 42 (35-150) mcg/dl TIBC 335 (250-450) mcg/dl Transferrin 239 (200-360) mg/dl Transferrin % Sat 13 L (15-50) % Ferritin 56.2 (8-388) ng/ml Total Bilirubin (0.2-1.0) mg/dl AST (13-39) U/L ALT (7-52) U/L Alkaline Phosphatase (34-104) U/L Troponin I High Sens 96.2 H* (0-14) pg/ml Total Protein (6.0-8.3) gm/dl Albumin (3.4-5.0) gm/dl Globulin (2.5-4.0) gm/dl Albumin/Globulin Ratio (0.9-2) Vitamin B12 401 (180-914) pg/ml Folate > 22.30 (>5.38) ng/ml Urine Color Urine Appearance (Clear) Urine pH (4.5-7.5) Ur Specific Wheatley (1.000-1.030) Urine Protein (Negative) Urine Glucose (UA) (Negative) Urine Ketones (Negative) Urine Blood (Negative) Urine Nitrite (Negative) Urine Bilirubin (Negative) Urine Urobilinogen (Negative) Ur Leukocyte Esterase (Negative) Adenovirus (PCR) (NotDetected) B. pertussis DNA (PCR) (NotDetected) B.parapertussis DNA PCR (NotDetected) C. pneumoniae DNA (PCR) (NotDetected) Coronavirus OC43 (PCR) (NotDetected) Coronavirus HKU1 (PCR) (NotDetected) Coronavirus 229E (PCR) (NotDetected) SARS-CoV-2 (PCR) (NotDetected) Coronavirus NL63 (PCR) (NotDetected) Human Metapneumovir PCR (NotDetected) Influenza Type A (PCR) (NotDetected) Influenza Type B (PCR) (NotDetected) M. pneumoniae (PCR) (NotDetected) Parainfluenza 1 (PCR) (NotDetected) Parainfluenza 2 (PCR) (NotDetected) Parainfluenza 3 (PCR) (NotDetected) Parainfluenza 4 (PCR) (NotDetected) RSV (PCR) (NotDetected) Entero/Rhino (PCR) (NotDetected) Blood Type Blood Type Recheck Antibody Screen Crossmatch 06/09/24 06/09/24 06/09/24 Range/Units 21:11 14:46 14:30 WBC (4.8-10.8) K/ul RBC (4.20-5.40) M/uL Hgb 9.1 L 6.4 L* (12.0-16.0) g/dl Hct 28.2 L 20.5 L* (37.0-47.0) % MCV (80.0-100.0) fL MCH (25.0-34.0) pg MCHC (32.0-36.0) g/dL RDW Std Deviation (36.4-46.3) fL RDW Coeff of Kiara (11.5-14.5) % Plt Count (130-400) K/uL MPV (9.4-12.4) fL Immature Gran % (Auto) % Neut % (Auto) % Lymph % (Auto) % Barbour % (Auto) % Eos % (Auto) % Baso % (Auto) % Neut # (Auto) (1.40-6.50) K/uL Lymph # (Auto) (1.20-3.40) K/uL Barbour # (Auto) (0.11-0.59) K/uL Eos # (Auto) (0.00-0.50) K/uL Baso # (Auto) (0.00-0.20) K/uL Immature Gran # (Auto) (0.01-0.20) K/uL Polychromasia Tear Drop Cells Ovalocytes PT (9.0-12.0) Seconds INR (0.9-1.1) APTT (21-31) Seconds PTT Ratio Sodium (136-145) mmol/L Potassium (3.5-5.1) mmol/L Chloride (98-107) mmol/L Carbon Dioxide (21-32) mmol/L Anion Gap (3-11) BUN (6-23) mg/dl Creatinine (0.6-1.2) mg/dl Est Cr Clr Drug Dosing ml/min eGFR BUN/Creatinine Ratio (10-20) Glucose (70-99(Fasting)) mg/dl Calcium (8.6-10.3) mg/dl Iron (35-150) mcg/dl TIBC (250-450) mcg/dl Transferrin (200-360) mg/dl Transferrin % Sat (15-50) % Ferritin (8-388) ng/ml Total Bilirubin (0.2-1.0) mg/dl AST (13-39) U/L ALT (7-52) U/L Alkaline Phosphatase (34-104) U/L Troponin I High Sens 104.2 H* D 77.2 H* (0-14) pg/ml Total Protein (6.0-8.3) gm/dl Albumin (3.4-5.0) gm/dl Globulin (2.5-4.0) gm/dl Albumin/Globulin Ratio (0.9-2) Vitamin B12 (180-914) pg/ml Folate (>5.38) ng/ml Urine Color Yellow Urine Appearance Clear (Clear) Urine pH 5.5 (4.5-7.5) Ur Specific Wheatley 1.007 (1.000-1.030) Urine Protein Negative (Negative) Urine Glucose (UA) Negative (Negative) Urine Ketones Negative (Negative) Urine Blood Negative (Negative) Urine Nitrite Negative (Negative) Urine Bilirubin Negative (Negative) Urine Urobilinogen Negative (Negative) Ur Leukocyte Esterase Negative (Negative) Adenovirus (PCR) (NotDetected) B. pertussis DNA (PCR) (NotDetected) B.parapertussis DNA PCR (NotDetected) C. pneumoniae DNA (PCR) (NotDetected) Coronavirus OC43 (PCR) (NotDetected) Coronavirus HKU1 (PCR) (NotDetected) Coronavirus 229E (PCR) (NotDetected) SARS-CoV-2 (PCR) (NotDetected) Coronavirus NL63 (PCR) (NotDetected) Human Metapneumovir PCR (NotDetected) Influenza Type A (PCR) (NotDetected) Influenza Type B (PCR) (NotDetected) M. pneumoniae (PCR) (NotDetected) Parainfluenza 1 (PCR) (NotDetected) Parainfluenza 2 (PCR) (NotDetected) Parainfluenza 3 (PCR) (NotDetected) Parainfluenza 4 (PCR) (NotDetected) RSV (PCR) (NotDetected) Entero/Rhino (PCR) (NotDetected) Blood Type Blood Type Recheck Antibody Screen Crossmatch 06/09/24 06/09/24 06/09/24 Range/Units 14:00 13:10 13:06 WBC (4.8-10.8) K/ul RBC (4.20-5.40) M/uL Hgb (12.0-16.0) g/dl Hct (37.0-47.0) % MCV (80.0-100.0) fL MCH (25.0-34.0) pg MCHC (32.0-36.0) g/dL RDW Std Deviation (36.4-46.3) fL RDW Coeff of Kiara (11.5-14.5) % Plt Count (130-400) K/uL MPV (9.4-12.4) fL Immature Gran % (Auto) % Neut % (Auto) % Lymph % (Auto) % Barbour % (Auto) % Eos % (Auto) % Baso % (Auto) % Neut # (Auto) (1.40-6.50) K/uL Lymph # (Auto) (1.20-3.40) K/uL Barbour # (Auto) (0.11-0.59) K/uL Eos # (Auto) (0.00-0.50) K/uL Baso # (Auto) (0.00-0.20) K/uL Immature Gran # (Auto) (0.01-0.20) K/uL Polychromasia Tear Drop Cells Ovalocytes PT (9.0-12.0) Seconds INR (0.9-1.1) APTT (21-31) Seconds PTT Ratio Sodium (136-145) mmol/L Potassium (3.5-5.1) mmol/L Chloride (98-107) mmol/L Carbon Dioxide (21-32) mmol/L Anion Gap (3-11) BUN (6-23) mg/dl Creatinine (0.6-1.2) mg/dl Est Cr Clr Drug Dosing ml/min eGFR BUN/Creatinine Ratio (10-20) Glucose (70-99(Fasting)) mg/dl Calcium (8.6-10.3) mg/dl Iron (35-150) mcg/dl TIBC (250-450) mcg/dl Transferrin (200-360) mg/dl Transferrin % Sat (15-50) % Ferritin (8-388) ng/ml Total Bilirubin (0.2-1.0) mg/dl AST (13-39) U/L ALT (7-52) U/L Alkaline Phosphatase (34-104) U/L Troponin I High Sens (0-14) pg/ml Total Protein (6.0-8.3) gm/dl Albumin (3.4-5.0) gm/dl Globulin (2.5-4.0) gm/dl Albumin/Globulin Ratio (0.9-2) Vitamin B12 (180-914) pg/ml Folate (>5.38) ng/ml Urine Color Urine Appearance (Clear) Urine pH (4.5-7.5) Ur Specific Wheatley (1.000-1.030) Urine Protein (Negative) Urine Glucose (UA) (Negative) Urine Ketones (Negative) Urine Blood (Negative) Urine Nitrite (Negative) Urine Bilirubin (Negative) Urine Urobilinogen (Negative) Ur Leukocyte Esterase (Negative) Adenovirus (PCR) Not Detected (NotDetected) B. pertussis DNA (PCR) Not Detected (NotDetected) B.parapertussis DNA PCR Not Detected (NotDetected) C. pneumoniae DNA (PCR) Not Detected (NotDetected) Coronavirus OC43 (PCR) Not Detected (NotDetected) Coronavirus HKU1 (PCR) Not Detected (NotDetected) Coronavirus 229E (PCR) Not Detected (NotDetected) SARS-CoV-2 (PCR) Not Detected (NotDetected) Coronavirus NL63 (PCR) Not Detected (NotDetected) Human Metapneumovir PCR Not Detected (NotDetected) Influenza Type A (PCR) Not Detected (NotDetected) Influenza Type B (PCR) Not Detected (NotDetected) M. pneumoniae (PCR) Not Detected (NotDetected) Parainfluenza 1 (PCR) Not Detected (NotDetected) Parainfluenza 2 (PCR) Not Detected (NotDetected) Parainfluenza 3 (PCR) Not Detected (NotDetected) Parainfluenza 4 (PCR) Not Detected (NotDetected) RSV (PCR) Not Detected (NotDetected) Entero/Rhino (PCR) Not Detected (NotDetected) Blood Type AB Positive Blood Type Recheck AB Positive Antibody Screen NEGATIVE Crossmatch See Detail 06/09/24 Range/Units 12:15 WBC 5.60 (4.8-10.8) K/ul RBC 2.17 L (4.20-5.40) M/uL Hgb 6.7 L* (12.0-16.0) g/dl Hct 21.8 L (37.0-47.0) % MCV 100.5 H (80.0-100.0) fL MCH 30.9 (25.0-34.0) pg MCHC 30.7 L (32.0-36.0) g/dL RDW Std Deviation 53.4 H (36.4-46.3) fL RDW Coeff of Kiara 14.6 H (11.5-14.5) % Plt Count 169 (130-400) K/uL MPV 9.6 (9.4-12.4) fL Immature Gran % (Auto) 0.4 % Neut % (Auto) 63.6 % Lymph % (Auto) 18.0 % Barbour % (Auto) 10.9 % Eos % (Auto) 6.4 % Baso % (Auto) 0.7 % Neut # (Auto) 3.56 (1.40-6.50) K/uL Lymph # (Auto) 1.01 L (1.20-3.40) K/uL Barbour # (Auto) 0.61 H (0.11-0.59) K/uL Eos # (Auto) 0.36 (0.00-0.50) K/uL Baso # (Auto) 0.04 (0.00-0.20) K/uL Immature Gran # (Auto) 0.02 (0.01-0.20) K/uL Polychromasia 1+ Tear Drop Cells 2+ Ovalocytes 1+ PT 11.8 (9.0-12.0) Seconds INR 1.1 (0.9-1.1) APTT 25 (21-31) Seconds PTT Ratio 0.9 Sodium 134 L (136-145) mmol/L Potassium 4.1 (3.5-5.1) mmol/L Chloride 104 (98-107) mmol/L Carbon Dioxide 23 (21-32) mmol/L Anion Gap 7 (3-11) BUN 27 H (6-23) mg/dl Creatinine 1.14 (0.6-1.2) mg/dl Est Cr Clr Drug Dosing 25.1 ml/min eGFR 47.47 BUN/Creatinine Ratio 23.7 H (10-20) Glucose 145 H (70-99(Fasting)) mg/dl Calcium 8.9 (8.6-10.3) mg/dl Iron (35-150) mcg/dl TIBC (250-450) mcg/dl Transferrin (200-360) mg/dl Transferrin % Sat (15-50) % Ferritin (8-388) ng/ml Total Bilirubin 0.6 (0.2-1.0) mg/dl AST 25 (13-39) U/L ALT 14 (7-52) U/L Alkaline Phosphatase 64 (34-104) U/L Troponin I High Sens 74.6 H* (0-14) pg/ml Total Protein 5.8 L (6.0-8.3) gm/dl Albumin 3.0 L (3.4-5.0) gm/dl Globulin 2.8 (2.5-4.0) gm/dl Albumin/Globulin Ratio 1.1 (0.9-2) Vitamin B12 (180-914) pg/ml Folate (>5.38) ng/ml Urine Color Urine Appearance (Clear) Urine pH (4.5-7.5) Ur Specific Wheatley (1.000-1.030) Urine Protein (Negative) Urine Glucose (UA) (Negative) Urine Ketones (Negative) Urine Blood (Negative) Urine Nitrite (Negative) Urine Bilirubin (Negative) Urine Urobilinogen (Negative) Ur Leukocyte Esterase (Negative) Adenovirus (PCR) (NotDetected) B. pertussis DNA (PCR) (NotDetected) B.parapertussis DNA PCR (NotDetected) C. pneumoniae DNA (PCR) (NotDetected) Coronavirus OC43 (PCR) (NotDetected) Coronavirus HKU1 (PCR) (NotDetected) Coronavirus 229E (PCR) (NotDetected) SARS-CoV-2 (PCR) (NotDetected) Coronavirus NL63 (PCR) (NotDetected) Human Metapneumovir PCR (NotDetected) Influenza Type A (PCR) (NotDetected) Influenza Type B (PCR) (NotDetected) M. pneumoniae (PCR) (NotDetected) Parainfluenza 1 (PCR) (NotDetected) Parainfluenza 2 (PCR) (NotDetected) Parainfluenza 3 (PCR) (NotDetected) Parainfluenza 4 (PCR) (NotDetected) RSV (PCR) (NotDetected) Entero/Rhino (PCR) (NotDetected) Blood Type Blood Type Recheck Antibody Screen Crossmatch Diagnostic Findings Chest X-Ray 06/09/24 12:11 XR chest 1V not portable CLINICAL HISTORY: Chest pain, nonspecific COMPARISON STUDY: Chest CT February 17, 2024. Chest radiograph November 29, 2023. FINDINGS: There is no pneumothorax. A small right pleural effusion has decreased in size since chest CT of February 17, 2024. Cardiomegaly is again noted. Electronic device projects over the chest. There is no evidence for pulmonary edema. There is no consolidation to suggest pneumonia. IMPRESSION: 1. Cardiomegaly without evidence for pulmonary edema. 2. Small right pleural effusion, decreased in size since prior chest CT. ACT 112: Negative or not required by law. Electronically signed by: Dwayne Felton M.D. 06/09/2024 1:17 PM (1) Anemia Anemia type: unspecified type Qualified Code(s): D64.9 - Anemia, unspecified
[2024-06-10] MEDS: FUROSEMIDE 40 MG TAB PO SCH (11:21)
[2024-06-10] MEDS: IRON SUCROSE 200 MG in SODIUM CHLORIDE 0.9% 100 ML IV ONE (13:04)
[2024-06-10 15:55] LABS: Hematocrit (blood only) 31.4 % (37.0-47.0); Hemoglobin 10.2 g/dl (12.0-16.0)
--- NOTE | 2024-06-10 19:12 | Hospitalist Progress Note ---
Date of Service June 10, 2024 Assessment & Plan (1) Anemia: Plan: chronic; hx of esophageal varices and GAVE presented with question of slow, upper GI bleeding Hgb 6.7, Hct 21.8 on admission by report her Hgb was 7.3 on outpatient labs 06/08/24 s/p 2 units PRBCs shortly after admission here H/H since the blood have been stable without any overt GI bleeding appreciate GI consultation; no immediate plans for EGD unless overt bleeding occurs, H/H downtrend again, etc. tolerated clears today will advance to full liquids in am CBC in am cont PPI twice daily (2) Dyspnea: Plan: CXR with small right-sided pleural effusion - CHRONIC has needed thoracentesis in the past records indicate fluid is transudative & 2nd to her cirrhosis o2 sats wnl exam is largely normal except R basilar decreased BS from the effusion she may have been dyspneic due to severe anemia symptoms resolved monitor (3) Elevated troponin: Plan: peak troponin 104 likely myocardial demand ischemia in setting of severe anemia no evidence of ACS (4) Cirrhosis: Plan: BPs low-normal today cont lasix cont coreg but hold aldactone compensated on exam today no evidence of hepatic encephalopathy (5) Pleural effusion: Plan: right-sided small no intervention needed at this time (6) Hypothyroidism: Plan: check TSH in am cont synthroid (7) History of esophageal varices: Plan: noted no immediate plans for EGD (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 (9) Iron deficiency: Plan: FE studies c/w Fe def from chronic (and/or acute) GI blood loss Venofer IV 200mg x 1 today if tolerates then repeat a 300mg dose tomorrow (10) Pancytopenia: Plan: WBC count & platelets were normal upon admission Now both mildly low B12/folate wnl check TSH platelets could have dropped from consumption if she indeed did bleed biofire panel negative pancytopenia is common with cirrhosis other possibility is a primary bone marrow issue cbc in am Plan h/o A-fib s/p ablation, continue carvedilol; not on anticoagulation chronically dementia/anxiety/depression - continue quetiapine 25 Mg daily, sertraline, and trazodone headaches - continue topiramate prophy updated pt's daughter by phone she reports her mother had hematuria recently saw outside urology group they wanted to get urine cytologies; ordered such for her Admission and Anticipated Discharge Date Admission Date: June 09, 2024 Subjective tele overnight wnl no overt GI bleeding - no large amounts of melena, no abd pain, no N/V, no BRBPR tolerating clears denies dizziness/lightheadedness with standing seen by GI - no plans for EGD s/p 2 units PRBCs overnight - tolerated such no dyspnea today or GUTIERREZ Review of Systems Review of Systems: CV - no chest pain pulm - no cough GI - no N/V Physical Exam Physical Exam: gen - thin, NAD neck - no JVD mouth - MMM heart - RRR, s1 s2 lungs - decreased BS right base, CTA b/l otherwise; no rales abd - soft NT ND BS+ ext - no edema, pulses 2+ b/l skin - mild pallor Results & Data Results & Data Vital Signs (Past 12 Hours) Vital Signs Temp Pulse Pulse Resp BP Pulse Ox O2 Del Method 06/10/24 16:05 36.7 C 68 18 124/68 97 Room Air 06/10/24 15:13 72 06/10/24 11:36 36.6 C 68 18 96/56 L 96 Room Air 06/10/24 10:43 70 06/10/24 10:43 Room Air 06/10/24 07:59 36.3 C L 104 H 18 120/75 96 Room Air Laboratory Results Laboratory Results - last 24 hr 06/10/24 06/10/24 07:46 15:21 WBC 4.21 L RBC 3.05 L Hgb 9.3 L 10.2 L Hct 28.6 L 31.4 L MCV 93.8 MCH 30.5 MCHC 32.5 RDW Std Deviation 62.5 H RDW Coeff of Kiara 18.1 H Plt Count 110 L MPV 9.6 Iron 42 TIBC 335 Transferrin 239 Transferrin % Sat 13 L Ferritin 56.2 Vitamin B12 401 Folate > 22.30 Diagnostic Findings Chest X-Ray 06/09/24 12:11 XR chest 1V not portable CLINICAL HISTORY: Chest pain, nonspecific COMPARISON STUDY: Chest CT February 17, 2024. Chest radiograph November 29, 2023. FINDINGS: There is no pneumothorax. A small right pleural effusion has decreased in size since chest CT of February 17, 2024. Cardiomegaly is again noted. Electronic device projects over the chest. There is no evidence for pulmonary edema. There is no consolidation to suggest pneumonia. IMPRESSION: 1. Cardiomegaly without evidence for pulmonary edema. 2. Small right pleural effusion, decreased in size since prior chest CT. ACT 112: Negative or not required by law. Electronically signed by: Dwayne Felton M.D. 06/09/2024 1:17 PM PG Care Time/CCT Total # of Minutes Spent Total Time Spent with Patient: Total time spent is greater than 50% in coordination of care (as documented) at patient's floor/unit and/or counseling patient: Coding Level of Care Code 42176 SUB INP/OBS CARE 3/50MIN Diagnoses Anemia D64.9 Anemia type: unspecified type Dyspnea R06.00 Elevated troponin R79.89 Cirrhosis of liver without ascites, unspecified hepatic cirrhosis type K74.69 Hepatic cirrhosis type: other cirrhosis Pleural effusion J90 Hypothyroidism E03.9 History of esophageal varices Z87.19 GAVE (gastric antral vascular ectasia) K31.819 Iron deficiency E61.1 Pancytopenia D61.818 (1) Anemia Anemia type: unspecified type Qualified Code(s): D64.9 - Anemia, unspecified (4) Cirrhosis Hepatic cirrhosis type: other cirrhosis Qualified Code(s): K74.69 - Other cirrhosis of liver
[2024-06-11 06:32] LABS: Hematocrit (blood only) 29.1 % (37.0-47.0); Hemoglobin 9.4 g/dl (12.0-16.0); Mean Corpuscular Hemoglobin 30.6 pg (25.0-34.0); Mean Corpuscular Hgb Conc 32.3 g/dL (32.0-36.0); Mean Corpuscular Volume 94.8 fL (80.0-100.0); Mean Platelet Volume 10.3 fL (9.4-12.4); Platelet Count 122 K/uL (130-400); RDW Coefficient of Variation 17.8 % (11.5-14.5); RDW Standard Deviation 61.7 fL (36.4-46.3); Red Blood Count 3.07 M/uL (4.20-5.40); White Blood Count 4.42 K/ul (4.8-10.8)
[2024-06-11 06:46] LABS: BUN Creatinine Ratio 19.2 (10-20); Calcium 7.9 mg/dl (8.6-10.3); Creatinine Clr Calc Pharmacy 27.5 ml/min; Potassium 3.5 mmol/L (3.5-5.1)
[2024-06-11 07:01] LABS: Thyroid Stimulating Hormone 0.092 uIu/ml (0.300-4.500)
[2024-06-11] MEDS: IRON SUCROSE 300 MG in SODIUM CHLORIDE 0.9% 250 ML IV ONE (09:01)
--- NOTE | 2024-06-11 15:40 | Electrocardiogram Report ---
Test Reason : Blood Pressure : */* mmHG Vent. Rate : 77 BPM Atrial Rate : 77 BPM P-R Int : 172 ms QRS Dur : 90 ms QT Int : 430 ms P-R-T Axes : 83 -75 46 degrees QTcB Int : 486 ms Sinus rhythm with Premature supraventricular complexes Left axis deviation Low voltage QRS Cannot rule out Anterior infarct , age undetermined Abnormal ECG No previous ECGs available Confirmed by Nile Edmondson ([id number]) on 06/11/2024 3:40:24 PM Referred By: REFERRED SELF Confirmed By: Nile Edmondson
[2024-06-11 16:29] LABS: Hematocrit (blood only) 30.5 % (37.0-47.0); Hemoglobin 10.1 g/dl (12.0-16.0)
--- NOTE | 2024-06-11 18:21 | Hospitalist Progress Note ---
Date of Service June 11, 2024 Assessment & Plan (1) Anemia: Plan: chronic; hx of esophageal varices and GAVE presented with question of slow, upper GI bleeding Hgb 6.7, Hct 21.8 on admission by report her Hgb was 7.3 on outpatient labs 06/08/24 s/p 2 units PRBCs shortly after admission here H/H since the blood Tx have been stable without any overt GI bleeding (today's stool - Brown) appreciate GI consultation; no plans for EGD unless overt bleeding occurs, H/H downtrend, etc. tolerated full liquids today advance to 2 gram salt restricted diet CBC in am cont PPI twice daily (2) Dyspnea: Plan: had dyspnea at time of admission CXR with small right-sided pleural effusion - CHRONIC has needed thoracentesis in the past for this records indicate fluid has been transudative & 2nd to her cirrhosis o2 sats wnl exam is largely normal except R base decreased breath sounds (minimal) due to this effusion she may have been dyspneic due to severe anemia symptoms resolved s/p PRBCs (3) Elevated troponin: Plan: peak troponin 104 likely myocardial demand ischemia in setting of severe anemia no evidence of ACS (4) Cirrhosis: Plan: BPs low-normal at times still cont lasix cont coreg but hold aldactone for now remains compensated on exam no evidence of hepatic encephalopathy if BPs are reasonable resume aldactone at d/c chronic cipro use - for SBP prophy?? 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 Heme/Onc, by report f/u with them post-d/c (10) Pancytopenia: Plan: WBC count & platelets were normal upon admission Now both mildly low B12/folate wnl TSH mildly suppressed platelets could have dropped from consumption if she indeed did bleed biofire panel negative pancytopenia is common with cirrhosis other possibility is a primary bone marrow issue although cell lines modestly low they do not require intervention CBC again in am (11) Hematuria: Plan: 06/10 - daughter reported that her mother had had hematuria a few times in the last few weeks/months she reported her mother had seen an outside urology group urology advised urine cytologies urine cytology sent & processed today - NEGATIVE for malignant cells 06/09/24 - u/a without blood f/u with urology as outpatient made sons aware of negative urine cytology Plan h/o A-fib s/p ablation, continue carvedilol; not on anticoagulation chronically dementia/anxiety/depression - continue quetiapine 25 Mg daily, sertraline, and trazodone headaches - continue topiramate prophy advance diet to low salt diet if tolerates diet and H/H tomorrow am are stable can d/c home on 06/12/24 Admission and Anticipated Discharge Date Admission Date: June 09, 2024 Subjective patient w/o complaints no abd pain, nausea, emesis had a large BROWN stool this afternoon tolerating full liquid diet no melena stool no BRBPR 2 sons at bedside during the visit received IV venofer again today -- tolerated such Review of Systems Review of Systems: CV - no chest pain pulm - no dyspnea or GUTIERREZ neuro - no dizziness Physical Exam Physical Exam: gen - thin, NAD, looks good today neck - no JVD mouth - MMM heart - RRR, s1 s2, no murmur lungs - mildly decreased BS right base, CTA b/l otherwise; no rales abd - soft NT ND BS+ ext - no edema, pulses 2+ b/l skin - mild pallor Results & Data Results & Data Vital Signs (Past 12 Hours) Vital Signs Temp Pulse Pulse Resp BP Pulse Ox O2 Del Method 06/11/24 15:37 36.7 C 73 18 94/57 L 92 Room Air 06/11/24 11:57 36.5 C 60 20 110/67 91 Room Air 06/11/24 08:00 Room Air 06/11/24 07:50 36.6 C 70 16 109/69 93 Room Air 06/11/24 07:17 107 H Laboratory Results Laboratory Results - last 24 hr 06/11/24 06/11/24 05:47 16:20 WBC 4.42 L RBC 3.07 L Hgb 9.4 L 10.1 L Hct 29.1 L 30.5 L MCV 94.8 MCH 30.6 MCHC 32.3 RDW Std Deviation 61.7 H RDW Coeff of Kiara 17.8 H Plt Count 122 L MPV 10.3 Sodium 136 Potassium 3.5 Chloride 106 Carbon Dioxide 23 Anion Gap 7 BUN 20 Creatinine 1.04 Est Cr Clr Drug Dosing 27.5 eGFR 53.00 BUN/Creatinine Ratio 19.2 Glucose 87 Calcium 7.9 L TSH 0.092 L PG Care Time/CCT Total # of Minutes Spent Total Time Spent with Patient: Total time spent is greater than 50% in coordination of care (as documented) at patient's floor/unit and/or counseling patient: Coding Level of Care Code 97521 SUB INP/OBS CARE 235MIN Diagnoses Anemia D64.9 Anemia type: unspecified type Dyspnea R06.00 Elevated troponin R79.89 Cirrhosis of liver without ascites, unspecified hepatic cirrhosis type K74.69 Hepatic cirrhosis type: other cirrhosis Pleural effusion J90 Hypothyroidism E03.9 History of esophageal varices Z87.19 GAVE (gastric antral vascular ectasia) K31.819 Iron deficiency E61.1 Pancytopenia D61.818 Hematuria R31.9 (1) Anemia Anemia type: unspecified type Qualified Code(s): D64.9 - Anemia, unspecified (4) Cirrhosis Hepatic cirrhosis type: other cirrhosis Qualified Code(s): K74.69 - Other cirrhosis of liver
[2024-06-12] MEDS: LEVOTHYROXINE SODIUM 112 MCG TABLET PO SCH (06:16)
[2024-06-12 06:55] LABS: Hematocrit (blood only) 30.4 % (37.0-47.0); Mean Corpuscular Hemoglobin 31.3 pg (25.0-34.0); Mean Corpuscular Hgb Conc 32.9 g/dL (32.0-36.0); Mean Corpuscular Volume 95.3 fL (80.0-100.0); Mean Platelet Volume 10.7 fL (9.4-12.4); Platelet Count 126 K/uL (130-400); RDW Coefficient of Variation 16.9 % (11.5-14.5); RDW Standard Deviation 59.1 fL (36.4-46.3); Red Blood Count 3.19 M/uL (4.20-5.40); White Blood Count 4.05 K/ul (4.8-10.8)
[2024-06-12 07:17] LABS: BUN Creatinine Ratio 19.6 (10-20); Calcium 8.1 mg/dl (8.6-10.3); Potassium 3.7 mmol/L (3.5-5.1)
[2024-06-12 08:06] VITALS: RESP 18; TEMP 97.7; O2SAT 95
--- NOTE | 2024-06-12 12:53 | Discharge Summary ---
Date of Service June 12, 2024 Admission HPI Per Admitting Provider Patient is an 83-year-old female with a past medical history of cirrhosis with chronic pleural effusions needing thoracentesis approximately every 3 months; last drained in February, chronic anemia, history of esophageal varices and GAVE, hypertension, hypothyroidism, A-fib s/p ablation, dementia. She presents today due to dyspnea and was found to be anemic with a hemoglobin of 6.7. Patient follows with numerous different medical facilities, had blood work 06/08 that showed a hemoglobin of 7.3. Patient seen at bedside with her daughter and granddaughter who provided most of history. Patient stated she has had an increase in dyspnea over the past 3 to 4 days along with a dry cough. She typically has dyspnea on exertion at baseline. She thought she needed her lungs drained again and that is why she came in. patient denies hematemesis, blood in stool, has chronic melena with iron supplementation. Patient denies rhinorrhea, sore throat, chest pain, abdominal pain, nausea, vomiting, diarrhea, constipation, dysuria, hematuria, edema. She was being evaluated by urology for hematuria and resolved with antibiotic treatment; is to have an at home urine sample to assess for bladder cancer. She follows with [facility] hematology and has a follow-up arranged with them for next Tuesday, she had a hemoglobin of 7.3 with them yesterday. She needed 2 units of blood August 16, 2 units of blood in September, 1 unit November 29, 1 unit 02/15. She had a colonoscopy in 2019 that was normal. She had a cauterization of her stomach 06/22/2019 in [place] and was supposed to have a follow-up cauterization but it was canceled due to COVID. She did have a EGD done with [facility] that did show some "sluggishness" but was not cauterized for bleed at that time. She follows with a new physician's aide with [facility], she had blood work with them on Tuesday. She has had blood work multiple times this week and could contribute to some mild anemia. The physician's aide recommended possible bone marrow biopsy but patient is unsure if she wants it given her age. She follows with [facility] for cardiology, she has A-fib s/p ablation in 2019. She took all of her home medications this morning. She stated her spironolactone was decreased to 25 Mg previously resulted in severe increase in her pleural effusions; this has been increased back to 100 Mg daily. She takes topiramate for headaches. She does not use oxygen at baseline. She wishes to be DNR/DNI. Admission Exam (Per Admitting) Constitutional The patient is awake, alert and oriented 3, well developed and well nourished, normocephalic and atraumatic, lying in bed and in no acute distress. HEENT--PERRL, EOMI, mucous membranes and oropharynx mildly dry Neck--supple. No JVD. No bruits. Thyroid normal, trachea midline, no adenopathy. Heart--normal S1 and S2. No murmurs, rubs or gallops. Lungs--clear bilaterally, no respiratory distress, no accessory muscle use. Abdomen--normal bowel sounds and soft. Extremities--no cyanosis or clubbing. No edema. Dermatologic--normal skin turgor, normal color, no abnormal lymph nodes, no rash. Neurologic--cranial nerves II through XII grossly intact. Rheumatologic--normal range of motion. Psychiatric--normal affect. Discharge Data Consultations 06/09/24 14:01 ED Decision to Admit Stat 06/09/24 14:35 Consult Gastroenterology Routine Hospital Course (1) Anemia: chronic; hx of esophageal varices and GAVE presented with question of slow, upper GI bleeding Hgb 6.7, Hct 21.8 on admission by report her Hgb was 7.3 on outpatient labs 06/08/24 s/p 2 units PRBCs shortly after admission here H/H since the blood Tx have been stable without any overt GI bleeding (today's stool - Brown) appreciate GI consultation; no plans for EGD unless overt bleeding occurs, H/H downtrend, etc. Hb 10 today, 06/12/24 (2) Dyspnea: had dyspnea at time of admission CXR with small right-sided pleural effusion - CHRONIC has needed thoracentesis in the past for this records indicate fluid has been transudative & 2nd to her cirrhosis o2 sats wnl exam is largely normal except R base decreased breath sounds (minimal) due to this effusion she may have been dyspneic due to severe anemia symptoms resolved s/p PRBCs (3) Elevated troponin: peak troponin 104 likely myocardial demand ischemia in setting of severe anemia no evidence of ACS (4) Cirrhosis: BPs low-normal at times still cont lasix cont coreg but hold aldactone for now remains compensated on exam no evidence of hepatic encephalopathy if BPs are reasonable resume aldactone at d/c chronic cipro use - for SBP prophy?? (5) Pleural effusion: right-sided small no intervention needed at this time this effusion is chronic (6) Hypothyroidism: TSH suppressed is on synthroid 125mcg daily will reduce dose to 112mcg daily and have her do repeat TSH in 4-6 weeks (7) History of esophageal varices: noted no immediate plans for EGD during this admission (8) GAVE (gastric antral vascular ectasia): history of such requiring intervention (9) Iron deficiency: FE studies c/w Fe def from chronic (and/or acute) GI blood loss Venofer IV 200mg x 1 -- 06/10 give Venofer again today - 300mg x 1 H/H remain stable follows with [facility] Heme/Onc, by report f/u with them post-d/c (10) Pancytopenia: WBC count & platelets were normal upon admission Now both mildly low B12/folate wnl TSH mildly suppressed platelets could have dropped from consumption if she indeed did bleed biofire panel negative pancytopenia is common with cirrhosis other possibility is a primary bone marrow issue although cell lines modestly low they do not require intervention CBC again in am (11) Hematuria: 06/10 - daughter reported that her mother had had hematuria a few times in the last few weeks/months she reported her mother had seen an outside urology group urology advised urine cytologies urine cytology sent & processed today - NEGATIVE for malignant cells 06/09/24 - u/a without blood f/u with urology as outpatient made sons aware of negative urine cytology Plan h/o A-fib s/p ablation, continue carvedilol; not on anticoagulation chronically dementia/anxiety/depression - continue quetiapine 25 Mg daily, sertraline, and trazodone headaches - continue topiramate prophy advance diet to low salt diet Coding Level of Care Code 20016 INP/OBS DISCH >30 MIN Diagnoses Anemia D64.9 Anemia type: unspecified type Dyspnea R06.00 Elevated troponin R79.89 Cirrhosis of liver without ascites, unspecified hepatic cirrhosis type K74.69 Hepatic cirrhosis type: other cirrhosis Pleural effusion J90 Hypothyroidism E03.9 History of esophageal varices Z87.19 GAVE (gastric antral vascular ectasia) K31.819 Iron deficiency E61.1 Pancytopenia D61.818 Hematuria R31.9 Time Spent (min) 35
[2024-06-12 13:41] VITALS: BP 124/69; PULSE 73
== END 2024-06-12 13:41 | disposition home or self-care (01) | DRG 811 ==
LOC: ED 12:01 → EDINP 14:43 → SUATTDRO 14:43 → 2N 15:21